=== PATIENT | male | born 2000 | race Caucasian/White ===

== ENCOUNTER 2023-08-15 21:05 | Emergency (ER) | payer MEDICARE, MEDICAID, SELFPAY ==
[2023-08-15] VITALS (10 sets, daily range): BP systolic 94–167; BP diastolic 74–111; PULSE 110; TEMP 36.6; O2SAT 95–97; BMI 39.1
--- NOTE | 2023-08-15 21:24 | ECG_ITS ---
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
--- NOTE | 2023-08-15 21:32 | ED_ITS ---
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 He states he had an ablation about 2 years ago at [facility] for WPW. He states he was told to take an aspirin for a week but was not prescribed any additional medications. He states last night he was awoken out of his sleep by feeling palpitations, tightness in his chest and feeling hot and cold. He states the episode lasted for several minutes and then resolved and today he had a similar episode this afternoon. He does have the sensation of palpitations this afternoon. He denies any recent illness, fevers, vomiting or other flulike illness. He does not smoke. Related Data Home Medications ?Medication ?Instructions ?Recorded ?Confirmed olanzapine 10 mg tablet mg 08/15/23 paliperidone palmitate 39 mg/0.25 39 mg IM Q30D 08/15/23 08/15/23 mL intramuscular syringe (Invega Sustenna) Allergies Allergy/AdvReac Type Severity Reaction Status Date / Time No Known Drug Allergies Allergy Verified 08/15/23 21:18 Review of Systems ROS Constitutional Denies: fever or chills Ears, nose, mouth, and throat Denies: throat pain or nasal congestion Cardiovascular Reports: chest pain and palpitations Respiratory Denies: shortness of breath or cough Gastrointestinal Denies: nausea or vomiting Musculoskeletal Denies: back pain or neck pain Integumentary/Breast Denies: rash Hematologic/Lymphatic Denies: easy bruising or easy bleeding [facility] Medical History (Updated 08/15/23 @ 21:36 by DARLING Springer) Depression ?F32.A - Depression, unspecified (ICD-10) Anxiety ?F41.9 - Anxiety disorder, unspecified (ICD-10) 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) Schizophrenia ?F20.9 - Schizophrenia, unspecified (ICD-10) Surgical History (Updated 08/15/23 @ 21:21 by Mynor Allen) H/O cardiac radiofrequency ablation ?Z98.890 - Other specified postprocedural states (ICD-10) Exam Narrative Exam Narrative: Gen.: Awake, alert, in no distress Head: Normocephalic, atraumatic ENT: Moist mucous membranes Respiratory: No respiratory distress, lungs clear bilaterally Cardio: Regular rate and rhythm Extremities: Moves extremities equally Psych: Normal mood and affect Neuro: No focal neuro deficit Skin: Warm, dry, intact Constitutional Vital Signs, click to edit/add: Last Vital Signs Temp 97.8 F 08/15/23 21:10 Pulse 110 H 08/15/23 21:10 Resp 18 08/15/23 21:10 BP 167/111 H 08/15/23 21:10 Pulse Ox 97 08/15/23 21:10 O2 Del Method Room Air 08/15/23 21:10 Course Vital Signs Vital signs: Vital Signs Temperature 97.8 F 08/15/23 21:10 Pulse Rate 110 H 08/15/23 21:10 Respiratory Rate 18 08/15/23 21:10 Blood Pressure 167/111 H 08/15/23 21:10 Pulse Oximetry 97 08/15/23 21:10 Oxygen Delivery Method Room Air 08/15/23 21:10 Temperature 97.8 F 08/15/23 21:10 Pulse Rate 110 H 08/15/23 21:10 Respiratory Rate 18 08/15/23 21:10 Blood Pressure 167/111 H 08/15/23 21:10 Pulse Oximetry 97 08/15/23 21:10 Oxygen Delivery Method Room Air 08/15/23 21:10 MDM - Arrhythmia/Palpitations MDM Narrative Medical decision making narrative: 2134: Patient was seen and examined by myself, no EKG changes at this time. He was ordered to have IV placement with fluids, lab studies and imaging of the chest is pending based on his D-dimer result. Case is turned over to attending physician at this time for disposition. This patient was seen and evaluated in conjunction with the physician assistant professor of english. Please refer to her H&P. He was seen and examined. He states that last night he felt like he was having some palpitations and could not get comfortable. He has a history of WPW and had an ablation 2 years ago at [facility] in [place]. His EKG was reviewed by myself as a sinus rhythm with no delta waves or sign of Idpvx-Iviyranic-Boygy. Normal axis, normal intervals and no acute changes. An IV was placed and he was medicated with IV fluids. Cardiac workup was ordered. He has a normal white count and hemoglobin. Electrolytes and TSH are normal. Troponin and D-dimer are both normal. He was seen and evaluated. He states he is feeling somewhat better but still feels a little bit lightheaded and has a mild headache. He will be medicated with Toradol and discharged home. He does not currently follow-up with cardiology and will be referred to [facility] as an outpatient Medical Records Attestation: I reviewed the patient's medical records. Lab Data Attestation: I reviewed the patient's lab results. Labs: Lab Results 08/15/23 Range/Units 21:30 WBC 8.3 (4.0-11.0) 10^3/uL RBC 5.08 (4.70-6.10) 10^6/uL Hgb 14.7 (14.0-18.0) g/dL Hct 42.3 (42.0-54.0) % MCV 83.3 (80.0-94.0) fL MCH 28.9 (25.9-34.0) pg MCHC 34.8 (29.9-35.2) g/dL RDW 12.1 (11.0-15.0) % Plt Count 294 (150-450) 10^3/uL MPV 10.7 (9.5-13.5) fL Neut % (Auto) 62.5 (43.0-75.0) % Lymph % (Auto) 26.3 (20.5-60.0) % Tyrrell % (Auto) 8.0 (1.7-12.0) % Eos % (Auto) 2.7 (0.9-7.0) % Baso % (Auto) 0.4 (0.2-2.0) % Neut # (Auto) 5.2 (1.4-6.5) 10^3/uL Lymph # (Auto) 2.2 (1.2-3.8) 10^3/uL Tyrrell # (Auto) 0.7 (0.3-0.8) 10^3/uL Eos # (Auto) 0.2 (0.0-0.7) 10^3/uL Baso # (Auto) 0.0 (0.0-0.1) 10^3/uL Abs Immat Gran (auto) 0.01 (0.00-0.03) 10^3/uL Imm/Tot Granulo (auto) 0.1 (0.0-0.5) % PT 11.4 (9.0-11.6) sec INR 1.08 D-Dimer 0.20 (<=0.59) mg/L FEU Sodium 139 (136-145) mmol/L Potassium 3.6 (3.5-5.1) mmol/L Chloride 102 (98-107) mmol/L Carbon Dioxide 26.8 (21.0-32.0) mmol/L Anion Gap 13.8 BUN 7.0 (7.0-18.0) mg/dL Creatinine 1.22 (0.70-1.30) mg/dL Est GFR ( Amer) >60 (>=60) Est GFR (Non-Af Amer) >60 (>=60) BUN/Creatinine Ratio 5.7 Glucose 142 H (74-106) mg/dL Calcium 9.1 (8.5-10.1) mg/dL Total Bilirubin 0.6 (0.2-1.0) mg/dL AST 13 L (15-37) U/L ALT 31 (16-63) U/L Alkaline Phosphatase 82 (46-116) U/L Troponin I High Sens 7.5 (4.0-76.1) pg/mL NT-Pro-B Natriuret Pep 10.0 (<=450.0) pg/mL Total Protein 7.4 (6.4-8.2) g/dL Albumin 4.0 (3.4-5.0) g/dL Globulin 3.4 g/dL Albumin/Globulin Ratio 1.2 TSH 2.564 (0.358-3.740) uIU/mL ECG Data Attestation: I personally reviewed and interpreted this ECG as follows: (Normal sinus rhythm at a rate of 98, no acute ST elevation or ectopy. EKG reviewed by attending physician) ECG interpretation date: 08/15/23 ECG interpretation time: 21:35 Discharge Plan Discharge Stand Alone Forms: Portal Instructions Chief Complaint: Arrhythmia/Palpitations Clinical Impression: Palpitations Patient Disposition: Home, Self-Care Time of Disposition Decision: 22:59 Condition: Good Prescriptions / Home Meds: No Action olanzapine 10 mg tablet Invega Sustenna 39 mg/0.25 mL syringe 39 mg IM Q30D Print Language: Syrian Instructions: Heart Palpitations (ED) [facility] [Primary Care Provider] - 1 week JAJA WANG [Physician] - 1 week
[2023-08-15 21:40] LABS: Basophils Percent Auto 0.4 % (0.2-2.0); Eosinophils Absolute Auto 0.2 10^3/uL (0.0-0.7); Eosinophils Percent Auto 2.7 % (0.9-7.0); Hematocrit 42.3 % (42.0-54.0); Hemoglobin 14.7 g/dL (14.0-18.0); Immature Granulocytes Abs Auto 0.01 10^3/uL (0.00-0.03); Immature Granulocytes Pct Auto 0.1 % (0.0-0.5); Lymphocytes Absolute Auto 2.2 10^3/uL (1.2-3.8); Lymphocytes Percent Auto 26.3 % (20.5-60.0); Mean Corpuscular HGB Conc 34.8 g/dL (29.9-35.2); Mean Corpuscular Hemoglobin 28.9 pg (25.9-34.0); Mean Corpuscular Volume 83.3 fL (80.0-94.0); Mean Platelet Volume 10.7 fL (9.5-13.5); Monocytes Absolute Auto 0.7 10^3/uL (0.3-0.8); Neutrophils Absolute Auto 5.2 10^3/uL (1.4-6.5); Neutrophils Percent Auto 62.5 % (43.0-75.0); Platelet Count 294 10^3/uL (150-450); Red Blood Count 5.08 10^6/uL (4.70-6.10); Red Cell Distribution Width 12.1 % (11.0-15.0); White Blood Count 8.3 10^3/uL (4.0-11.0)
[2023-08-15 21:53] LABS: INR 1.08; Prothrombin Time 11.4 sec (9.0-11.6)
[2023-08-15 21:54] LABS: Alanine Aminotransferase 31 U/L (16-63); Albumin Globulin Ratio 1.2; Alkaline Phosphatase 82 U/L (46-116); Anion Gap 13.8; Aspartate Amino Transferase 13 U/L (15-37); BUN Creatinine Ratio 5.7; Bilirubin Total 0.6 mg/dL (0.2-1.0); Calcium 9.1 mg/dL (8.5-10.1); Carbon Dioxide 26.8 mmol/L (21.0-32.0); Chloride 102 mmol/L (98-107); Estimated GFR (African America >60 (>=60); Estimated GFR (Non-African Ame >60 (>=60); Globulin 3.4 g/dL; Glucose 142 mg/dL (74-106); Potassium 3.6 mmol/L (3.5-5.1); Sodium 139 mmol/L (136-145); Total Protein 7.4 g/dL (6.4-8.2)
[2023-08-15] MEDS: 0.9 % SODIUM CHLORIDE 1,000 ML 1000 ML IV (21:56)
--- NOTE | 2023-08-15 21:57 | XR_ITS ---
[address] [address] Patient Name: JEAN BETHEA MRN: [id number] date: 2000 Sex: M Assigned Patient Location: ER Current Patient Location: Accession/Order Number: [id number] Exam Date: 08/15/2023 22:00 Report Date: 08/15/2023 22:42 At the request of: JAIMIE HOOKS Procedure: XR chest 1V EXAM: XR chest 1V CLINICAL INDICATION: Palpitations TECHNIQUE: Portable frontal semi-erect view of the chest. COMPARISON: None. FINDINGS: Lines and tubes: None. Lungs: No convincing focal infiltrates. No pleural effusion or pneumothorax. Heart: Cardiac and mediastinal contours are unremarkable. No overt pulmonary vascular congestion. Osseous structures: No acute abnormalities. XR/XR chest 1V IMPRESSION: No acute cardiopulmonary process. Electronically authenticated by: QIANA GALARZA Date: 08/15/2023 22:42
[2023-08-15 22:02] LABS: Thyroid Stimulating Hormone 2.564 uIU/mL (0.358-3.740); Troponin I High Sensitivity 7.5 pg/mL (4.0-76.1)
[2023-08-15] MEDS: KETOROLAC TROMETHAMINE 30 MG/ML VIAL 15 MG IVP (23:03)
== END 2023-08-15 23:17 | disposition home or self-care (01) ==
PROVIDERS: Physician Assistant; Emergency Provider Emergency Medicine
DX: R00.2 Palpitations (principal); Z79.899 Other long term (current) drug therapy; F32.A Depression, unspecified; F41.9 Anxiety disorder, unspecified; I45.6 Pre-excitation syndrome; F20.9 Schizophrenia, unspecified; Z98.890 Other specified postprocedural states
CPT/HCPCS: 36415; 71045; 80053; 83880; 84443; 84484; 85025; 85378; 85610; 93005; 96374; 99285

== ENCOUNTER 2023-11-18 07:45 | Outpatient (OUT) | payer MEDICARE, MEDICAID, SELFPAY ==
--- OUTSIDE RECORDS SUMMARY | 2023-11-18 07:48 | XMS_ITS | CCD ---
Author Organization [facility] Care Team Providers Care Processor [employer] Name Role Phone ZENIA AU Admitting Unavailable ZENIA AU Attending Unavailable EVAN CHURCH Referring Unavailable EMERSON EDDY Attending Unavailable SERVICES, [facility] Primary Care UnaMAYE Syed Attending Unavailable MAYE MENDENHALL Referring Unavailable SERVICES, [facility] Primary Care Unava ANDI Salguero Attending Unavailable Román Leiva Attending Unavailab le Román Leiva Admitting Unavailab le NO FAMILY, PHYSICIAN Primary Care Unavailable Problems Problem Classification Problem Date Documented Da te Episodic/Chronic Other lower respiratory disease (1 source) Cough Onset: 04-20-2023 Episodic Other upper respiratory infections (1 source) Acute upper respiratory infection, unspecified; Translations: [Acute upper respiratory infection, unspecified] Onset: 04-20-2023 Episodic Unclassified (1 source) Cough, Vomitting Onset: 04-20-2023 Results Test Name Value Interpretation Reference Range Facil ity Office Visiton 09-06-2023 Follow-up visit [id number] Navjot Ocampo 2000 M Date Provider Department Center 09/06/2023 3848-ANDI FOSS CARD [facility] Family History Problem Relation Age of Onset Heart attack Maternal Grandmother Family Status - Relation Status Age at Maternal Grandmother Level of Service:81304 ND OFFICE/OUTPATIENT NEW MODERATE MDM 45 MINUTES Normal [facility] CBC AND AUTO DIFFon 04-20-19 24 ABSOLUTE BASOPHIL 0.1 X10E9/L Normal 0.0-0.2 [facility] Comment on above: Performed By: #### C BCA, CMP #### [facility] ([id number]) [address] [place] [address] 84384 ABSOLUTE NEUTROPHIL 5.1 X10E9/L Normal 1.5-6.6 [facility] Comment on above: Performed By: #### C BCA, CMP #### [facility] ([id number]) [address] [place] [address] 12750 Basophils/100 WBC (Bld) 0.6 % Normal [facility] Comment on above: Performed By: #### C BCA, CMP #### [facility] ([id number]) [address] [place] [address] 41320 Eosinophils (Bld) [#/Vol] 0.3 10*3/uL Normal 0.0-0.4 [facility] Comment on above: Performed By: #### C AKOSUA, CMP #### [facility] ([id number]) [address] [place] [address] 13816 Eosinophils/100 WBC (Bld) 3.6 % Normal [facility] Comment on above: Performed By: #### C AKOSUA, CMP #### [facility] ([id number]) [address] [place] [address] 90791 Erythrocyte distribution width (RBC) [Ratio] 13.2 % Normal 11.5-15.0 [facility] Comment on above: Performed By: #### C AKOSUA, CMP #### [facility] ([id number]) [address] [place] [address] 39089 Hematocrit (Bld) [Volume fraction] 40.4 % Normal 39-49 [facility] Comment on above: Performed By: #### C BCA, CMP #### [facility] ([id number]) [address] [place] [address] 39115 Hemoglobin (Bld) [Mass/Vol] 14.0 g/dL Normal 13.0-17.0 [facility] Comment on above: Performed By: #### C BCA, CMP #### [facility] ([id number]) [address] [place] [address] 24805 Lymphocytes (Bld) [#/Vol] 2.0 10*3/uL Normal 1.0-3.5 [facility] Comment on above: Performed By: #### C BCA, CMP #### [facility] ([id number]) [address] [place] [address] 18716 Lymphocytes/100 WBC (Bld) 22.7 % Normal [facility] Comment on above: Performed By: #### C BCA, CMP #### [facility] ([id number]) [address] [place] [address] 05423 MCH (RBC) [Entitic mass] 28.8 pg Normal 27-34 [facility] Comment on above: Performed By: #### C AKOSUA, CMP #### [facility] ([id number]) [address] [place] [address] 45988 MCHC (RBC) [Mass/Vol] 34.8 g/dL Normal 32-36 [facility] Comment on above: Performed By: #### C BCA, CMP #### [facility] ([id number]) [address] [place] [address] 81357 MCV (RBC) [Entitic vol] 83 fL Normal 80-100 [facility] Comment on above: Performed By: #### C BCA, CMP #### [facility] ([id number]) [address] [place] [address] 71848 Monocytes (Bld) [#/Vol] 1.3 10*3/uL High 0-0.9 [facility] Comment on above: Performed By: #### C BCA, CMP #### [facility] ([id number]) [address] [place] [address] 12819 Monocytes/100 WBC (Bld) 14.6 % Normal [facility] Comment on above: Performed By: #### C BCA, CMP #### [facility] ([id number]) [address] [place] [address] 09486 Neutrophils/100 WBC (Bld) 58.5 % Normal [facility] Comment on above: Performed By: #### C BCA, CMP #### [facility] ([id number]) [address] [place] [address] 45080 Platelet mean volume (Bld) [Entitic vol] 9.1 fL Normal 7-12 [facility] Comment on above: Performed By: #### C BCA, CMP #### [facility] ([id number]) [address] [place] [address] 55033 Platelets (Bld) [#/Vol] 279 10*3/uL Normal 150-450 [facility] Comment on above: Performed By: #### C BCA, CMP #### [facility] ([id number]) [address] [place] [address] 38428 RBC COUNT 4.86 X10E12/L Normal 4.10-5.70 [facility] Comment on above: Performed By: #### C BCA, CMP #### [facility] ([id number]) [address] [place] [address] 30784 WBC (Bld) [#/Vol] 8.7 10*3/uL Normal 4.0-11.0 [facility] Comment on above: Performed By: #### C BCA, CMP #### [facility] ([id number]) [address] [place] [address] 31683 COMPREHENSIVE METABOLIC PANE Brigido 04-20-2023 Albumin [Mass/Vol] 4.3 g/dL Normal 3.2-5.3 [facility] Comment on above: Performed By: #### C BCA, CMP #### [facility] ([id number]) [address] [place] [address], [place] [address] ALP [Catalytic activity/Vol] 72 U/L Normal 39-130 [facility] Comment on above: Performed By: #### C BCA, CMP #### [facility] ([id number]) [address] [place] [address] 72576 ALT [Catalytic activity/Vol] 27 U/L Normal 0-40 [facility] Comment on above: Performed By: #### C BCA, CMP #### [facility] ([id number]) [address] [place] [address] 17674 Anion gap [Moles/Vol] 11 mmol/L Normal 5-15 [facility] Comment on above: Performed By: #### C BCA, CMP #### [facility] ([id number]) [address] [place] [address] 89856 AST [Catalytic activity/Vol] 18 U/L Normal 0-41 [facility] Comment on above: Performed By: #### C BCA, CMP #### [facility] ([id number]) [address] [place] [address] 24067 Bilirubin [Mass/Vol] 0.8 mg/dL Normal 0.3-1.2 [facility] Comment on above: Performed By: #### C BCA, CMP #### [facility] ([id number]) [address] [place] [address] 89454 Calcium [Mass/Vol] 8.9 mg/dL Normal 8.5-10.5 [facility] Comment on above: Performed By: #### C BCA, CMP #### [facility] ([id number]) [address] [place] [address] 31494 Chloride [Moles/Vol] 102 mmol/L Normal 98-109 [facility] Comment on above: Performed By: #### C BCA, CMP #### [facility] ([id number]) [address] [place] [address] CO2 [Moles/Vol] 25 mmol/L Normal 22-32 [facility] Comment on above: Performed By: #### C BCA, CMP #### [facility] ([id number]) [address] [place] [address] 46963 Creatinine [Mass/Vol] 1.00 mg/dL Normal 0.70-1.20 [facility] Comment on above: Result Comment: METH OD TRACEABLE TO IDMS STANDARD Performed By: #### C AKOSUA, CMP #### [facility] ([id number]) [address] [place] [address] 15307 eGFR (CKD-EPI) NON-RACE DEPENDENT >90 Normal >59 [facility] Comment on above: Result Comment: Reported eGFR is based on the CKD-EPI 2020 equation that does not use a race coefficient. Performed By: #### C BCA, CMP #### [facility] ([id number]) [address] [place] [address] 45862 Glucose [Mass/Vol] 121 mg/dL High 65-99 [facility] Comment on above: Performed By: #### C BCA, CMP #### [facility] ([id number]) [address] [place] [address] 01034 Potassium [Moles/Vol] 3.6 mmol/L Normal 3.5-5.0 [facility] Comment on above: Performed By: #### C BCA, CMP #### [facility] ([id number]) [address] [place] [address] 75900 Protein [Mass/Vol] 7.4 g/dL Normal 6.0-8.0 [facility] Comment on above: Performed By: #### C BCA, CMP #### [facility] ([id number]) [address] [place] [address] 82184 Sodium [Moles/Vol] 138 mmol/L Normal 134-146 [facility] Comment on above: Performed By: #### C BCA, CMP #### [facility] ([id number]) [address] [facility], [place] [address] Urea nitrogen [Mass/Vol] 7 mg/dL Normal 5-23 [facility] Comment on above: Performed By: #### C BCA, CMP #### [facility] ([id number]) [address] [place] [address] RESP PATHOGENS/MASK-WvU-0gr 04-20-2023 Respiratory pathogens DNA and RNA panel ZACHARY+non-probe (Nph) SPECIMEN SOURCE NASO PHARYNX ADENOVIRUS Not detected (qualifier value) CORONAVIRUS 229E Detected (qualifier value) CORONAVIRUS HKU1 Not detected (qualifier value) CORONAVIRUS NL63 Not detected (qualifier value) CORONAVIRUS OC43 Not detected (qualifier value) HUMAN METAPNEUVIRUS Not detected (qualifier value) RHINO/ENTEROVIRUS Not detected (qualifier value) INFLUENZA A Not detected (qualifier value) INFLUENZA B Not detected (qualifier value) PARAINFLUENZA 1 Not detected (qualifier value) PARAINFLUENZA 2 Not detected (qualifier value) PARAINFLUENZA 3 Not detected (qualifier value) PARAINFLUENZA 4 Not detected (qualifier value) RESP SYNCYTIAL VIRUS Not detected (qualifier value) BORD PARAPERTUSSIS Not detected (qualifier value) BORDETELLA PERTUSSIS Not detected (qualifier value) CHLAM.PNEUMONIAE Not detected (qualifier value) MYCO. PNEUMONIAE Not detected (qualifier value) SARS CoV 2 Not detected (qualifier value) NOTE The [employer] Respiratory Panel 2.1 (RP2.1) is a multiplexed nucleic acid test intended for the simultaneous qualitative detection and differentiation of nucleic acid from multiple viral and bacterial respiratory organisms, including nucleic acid from Severe Acute Respiratory Syndrome Coronavirus 2 (SARS-CoV-2), in nasopharyngeal swabs obtained from individuals suspected of COVID-19 by their healthcare provider. Testing is limited to laboratories certified under the Clinical Laboratory Improvement Amendments of 1988 (CLIA), to perform high complexity or moderate complexity tests. SARS-CoV-2 RNA and nucleic acids from the other respiratory viral and bacterial organisms identified by this test are generally detectable in nasopharyngeal swabs during the acute phase of infection. The detection and identification of specific viral and bacterial nucleic acids from individuals exhibiting signs and/or symptoms of respiratory infection is indicative of the presence of the identified microorganism and aids in the diagnosis of respiratory infection if used in conjunction with other clinical and epidemiological information. Positive results are indicative of the presence of the identified organism, but do not rule out co-infection with other pathogens. The agent(s) detected by the [employer] RP2.1 may not be the definite cause of disease and clinical correlation with patient history and other diagnostic information is necessary to determine patient infection status. Negative results in the setting of a respiratory illness may be due to infection with pathogens not detected by this test, or lower respiratory tract infection that may not be detected by a nasopharyngeal specimen. Negative results do not preclude SARS-CoV-2 infection and should not be used as the sole basis for patient management decisions. Negative DEN-CoV-2 results must be combined with clinical observations, patient history and epidemiological information. Negative results for other organisms identified by the test may require additional laboratory testing when evaluating a patient with possible respiratory tract infection. Normal [facility] Comment on above: Performed By: #### 8 [id number] #### [facility] ([id number]) [address] [facility], FIRST [address]LO[address] [place], [place] [id number] [place] [address] LAB ([id number]) [address] [place] [address] [address] [place] [address] SARS/FLU A+B/RSV by NAAT/Mol ularon 04-20-2023 SARS/FLU A+B/RSV by NAAT/Molecular FLU A PCR Negative (qualifier value) FLU B PCR Negative (qualifier value) RSV by PCR Negative (qualifier value) SARS CoV 2 Not detected (qualifier value) NOTE The Xpert Xpress SARS-CoV-2/Flu/RSV Plus test is a rapid, multiplexed real-time RT-PCR test intended for the simultaneous qualitative detection and differentiation of SARS-CoV-2, influenza A, influenza B and respiratory syncytial virus (RSV) viral RNA from individuals suspected of respiratory viral infection consistent with COVID-19 by their healthcare provider. This test has not been validated in asymptomatic patients. The Xpert Xpress SARS-CoV-2 test is intended for use by qualified and trained operators who are performing tests using either GeneXpert DX or GeneXpert Infinity systems and is limited to laboratories that meet the CLIA requirements to perform high and moderate complexity tests. The Xpert Xpress SARS-CoV-2/Flu/RSV Plus is only for use under the Food and Drug Administration's Emergency Use Authorization. Results are for the simultaneous detection and differentiation of SARS-CoV-2, influenza A, influenza B and RSV nucleic acids in clinical specimens. SARS-CoV-2, influenza A, influenza B and RSV RNA identified by this test are generally detectable in upper respiratory samples during the acute phase of infection. Positive results are indicative of the presence of the identified virus, but do not rule out bacterial infection or co-infection with other pathogens not detected by this test. Clinical correlation with patient history and other diagnostic information is necessary to determine patient infection status. The agent detected may not be the definite cause of disease. Negative results do not preclude SARS-CoV-2, influenza A, influenza B and RSV infection and should not be used as the sole basis for treatment or other patient management decisions. Negative results must be combined with clinical observations, patient history and epidemiological information. An Invalid result may occur with specimen-associated inhibition unable to be resolved with specimen repeat. Fact Sheet for Healthcare Providers: https://www.fda.gov/m edia/792669/download Fact Sheet for Patients: https://www.fda.gov/m edia/934689/download Normal [facility] Comment on above: Performed By: #### C OVFLR #### [facility] ([id number]) [address] [place] [address], [place] [address] XR CHEST 2 VWSon 04-20-2023 XR CHEST 2 VWS XR CHEST 2 VWS History: Cough. Fever history of Vfwbl-Gzlbzxiaa-Dsiwb with cardiac ablation Chest Xray Two-view study. Comparison: 12/22/2021 Findings: The lungs are stable. Cardiac silhouette and pulmonary vasculature are unchanged. No focal consolidative airspace disease, pneumothorax, or pleural effusion is appreciated. No free air beneath the diaphragm is noted. The osseous structures are stable. Impression: * No acute process. Finalized by Samina Mariano MD on 04/20/2023 9:38 PM Normal [facility] Lithiumon 03-11-2019 Wallace [Moles/Vol] 1.1 mmol/L Normal 0.6-1.2 [facility] Comment on above: Performed By: #### L IC #### [facility] [address] [place] [address] Trimming Machine Operator: Grant Lemos DO Wallace [Moles/Vol] 450 mmol/L Normal [facility] Comment on above: Performed By: #### L IC #### [facility] [address] [place] [address] Trimming Machine Operator: Grant Lemos DO Wallace [Moles/Vol] 659150 mmol/L Normal [facility] Comment on above: Performed By: #### L IC #### [facility] [address] [place] [address] Trimming Machine Operator: Grant Lemos DO Wallace [Moles/Vol] 2053 mmol/L Normal [facility] Comment on above: Performed By: #### L IC #### [facility] [address] [place] [address] Trimming Machine Operator: Grant Lemos DO Encounters Encounter Date Encounter Type Care Provider Facility Start: 11-08-2023 ambulatory Román Ha acility:[facility] Start: 09-06-2023 End: 09-06-2023 [facility] Start: 04-20-2023 End: 04-21-2023 [facility] Start: 03-07-2019 End: 03-12-2019 Evaluation and management of inpatient [facility] Procedures Date Procedure Procedure Detail Performing Clinician Start: 03-12-2019 PATIENT MONITORING C LOSE Q 15 [facility]ES [facility] Start: 03-11-2019 DISCHARGE PATIENT DEDEJEAN PAUL BUNCH [facility] Start: 03-11-2019 Drug screen quantita tive lithium [facility] Start: 03-09-2019 IP CONSULT TO HISTOR Y AND PHYSICAL ZENIA AU Start: 03-07-2019 DIET GENERAL ZENIA AU Start: 03-07-2019 FULL CODE ZENIA AU Start: 03-07-2019 PATIENT STATUS (DIRECT) ZENIA AU Start: 03-07-2019 TOBACCO CESSATION EDUCATION ZENIA AU Start: 03-07-2019 VITAL SIGNS [facility] Payers Date Payer Category Payer Self-pay 2019 Medicare [id number] 2014 Medicaid [id number] 2014 Medicare [id number] 2000 Unknown [id number] [id number] 2000 Unknown [id number] 2000 Unknown [id number] [id number] Unknown [id number] [id number] Progress note 09-06-2023 Note Date & Type Note Facility 09-06-2023 Note Cardiology Clinic No te Chief Complaint: palpitations, dizziness HPI: Navjot Ocampo is a 23 y.o. 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 Patient presents to cardiology clinic for complaints of palpitations and dizziness. Patient states that ablation was several years ago. He did well for some time, but has had palpitations and dizziness over the past few months. No syncope. No anginal chest pain. No lower extremity edema, orthopnea, or PND. Cardiology ROS: GENERAL: Denies fever, chills, night sweats, weight loss. HEENT: Denies changes in vision, photophobia, changes in hearing, epistaxis, oral bleeding. CARDIOVASCULAR: Denies chest pain, exertional dyspnea, orthopnea/PND, lower extremity edema, palpitations, lightheadedness/dizziness. RESPIRATORY: Denies SOB, coughing, wheezing GI: Denies abdominal pain, nausea/vomiting, heartburn, melena/hematochezia. RENAL: Denies dysuria, hematuria, flank pain. MSK: Denies muscle weakness/pain, arthralgias/joint pain. NEUROLOGIC: Denies LOC, weakness, numbness, headaches. SKIN: Denies abnormal rashes or bleeding. PSYCH: Denies significant anxiety, depression, sleep disturbances. Past Medical History He has a past medical history of Abnormal ECG, Anxiety, Arrhythmia, Depression, Schizophrenia (CMS/HCC), and WPW (Gpjbk-Ycoifxrkh-Hygbc syndrome). Surgical History He has a past surgical history that includes Ablation of dysrhythmic focus. Social History He reports that he has never smoked. He has never used smokeless tobacco. He reports current alcohol use. No history on file for drug use. Family History Family History Problem Relation Name Age of Onset Heart attack Maternal Grandmother Medications Current Outpatient Medications on File Prior to Visit Medication Sig Dispense Refill OLANZapine (ZyPREXA) 10 mg tablet Take 10 mg by mouth at bedtime. paliperidone palmitate ER (Invega Sustenna) 39 mg/0.25 mL syringe Inject 39 mg into the shoulder, thigh, or buttocks every 28 (twenty-eight) days. No current facility-administered medications on file prior to visit. Allergies Patient has no known allergies. Physical Exam VITAL SIGNS: BP 104/80 (BP Location: Right arm, Patient Position: Sitting) Pulse 83 Ht 1.651 m (5' 5 ) Wt 101 kg (223 lb) SpO2 97% BMI 37.11 kg/m??? Constitutional: Well developed, Well nourished, No acute distress, Non-toxic appearance. HENT: Normocephalic, Atraumatic, Bilateral external ears have normal appearance, Nose appears normal, nares are patent. Eyes: PERRLA, EOMI, Conjunctiva normal, No discharge. Neck: Normal range of motion, No tenderness, Supple, No stridor. No cervical lymphadenopathy noted. Cardiovascular: Normal heart rate, Normal rhythm, No murmurs, No rubs, No gallops. Thorax & Lungs: Normal breath sounds, No respiratory distress, No wheezing, No chest tenderness to palpation. Abdomen: Bowel sounds normal, Soft, Nontender, No masses, No pulsatile masses. Skin: Warm, Dry, No erythema, No rash. Back: No tenderness, No CVA tenderness. Extremities: Intact distal pulses, No edema, No tenderness, No cyanosis, No clubbing. Musculoskeletal: Grossly normal strength in extremities Neurologic: Alert & oriented x 3, no gross focal neurological deficits Psychiatric: Affect normal, Judgment normal, Mood normal. Impression: -WPW s/p ablation -Palpitations -Dizziness Plan: -Will obtain 30 day event monitor to assess for arrythmia -Will obtain echo to assess LVEF, regional wall motion. Valvular function, and to rule out structural abnormality -Optimize medical management -Aggressive risk factor modification -Plan of care discussed with patient. All questions were answered. Patient voices understanding and is agreeable with current plan. -Patient was educated on red flag symptoms. Strict return precautions were provided. Patient verbalizes understanding -Follow-up in cardiology clinic after testing is complete Thank you for allowing us to participate in the care of your patient. Please do not hesitate to contact cardiology with any questions or concerns. Andi Foss MD Interventional Cardiology [facility] Summary Purpose Family History No Family History Records FoundNo Family History Records FoundNo Family History Records FoundNo Family History Records Found Advance Directives No Advanced Directives Records FoundNo Advanced Directives Records FoundNo Advanced Directives Records FoundNo Advanced Directives Records Found Additional Source Comments (unrecognized sect ion and content) No Status Records FoundNo Status Records FoundNo Status Records FoundNo Status Records Found INFORMATION SOURCE (unrecogn ized section and content) DATE CREATED AUTHOR 03/12/2019 [facility] DATE CREATED AUTHOR AUTHOR'S ORGANIZ ATION 04/21/2023 [facility] DATE CREATED AUTHOR AUTHOR'S ORGANIZ ATION 09/08/2023 [facility] DATE CREATED AUTHOR AUTHOR'S ORGANIZ ATION 11/10/2023 [facility] FOR RECORDS PERTAINING TO PATIENTS WHO ARE OR HAVE BEEN ENROLLED IN A CHEMICAL DEPENDENCY/SUBSTANCEABUSE PROGRAM, SOME INFORMATION MAY BE OMITTED. This clinical summary was aggregated from multiple sources. Caution should be exercised in using it in the provision of clinical care. This summary normalizes information from multiple sources, and as a consequence, information in this document may materially change the coding, format and clinical context of patient data. In addition, data may be omitted in some cases. CLINICAL DECISIONS SHOULD BE BASED ON THE PRIMARY CLINICAL RECORDS. [facility] [facility] provides no warranty or guarantee of the accuracy or completeness of information in this document.
--- NOTE | 2023-11-18 08:00 | CA_ITS ---
Patient Name: JEAN BETHEA MR#: [id number] : 2000 Exam Date: 11/18/2023 Ordering Doctor: DORIAN FOSS M.D. ECHOCARDIOGRAM REPORT PROCEDURE: CA ECHO DOPPLER COMPLETE INDICATIONS: Avry-[id number]- ablation COMPARISON: None. DESCRIPTION: COMPLETE ECHOCARDIOGRAM Real-time transthoracic echocardiography with 2D, M-mode, spectral and color flow Doppler performed. QUALITY: Technical quality was good. LEFT VENTRICLE: Normal chamber size. Mild concentric left ventricular hypertrophy. Normal systolic function. LV EF: Normal left ventricular ejection fraction, (>55%). DIASTOLIC: Normal diastolic function. ATRIAL SEPTUM: Visually appears intact. LEFT ATRIUM: Normal chamber size. RIGHT ATRIUM: Normal chamber size. RIGHT VENTRICLE: Normal chamber size. Normal right ventricular systolic function. TRICUSPID VALVE: Normal mobility and thickness. No stenosis with trivial regurgitation. RVSP 20 mmHg MITRAL VALVE: Normal mobility and thickness. No evidence of mitral valve stenosis. There is no mitral annular calcification. Trivial mitral regurgitation. AORTIC VALVE: Normal trileaflet appearance. No visible sclerosis. Normal leaflet mobility. No evidence of aortic valve stenosis. No aortic regurgitation. AORTIC ROOT: Normal diameter and appearance. PULMONIC VALVE: Normal thickness and mobility. No stenosis. Trivial regurgitation. PERICARDIUM: No evidence of pericardial effusion. IVC: Collapses with inspirations. PLEURA: CONCLUSION: 1. Mild concentric left ventricular hypertrophy with normal systolic function. LVEF is estimated at 55 to 60%. 2. Normal diastolic function. 3. Normal right ventricular size and systolic function. 4. No significant valvular dysfunction. 5. Normal right-sided pressures. 6. No pericardial effusion. Adult Echocardiography Procedure Report Left Ventricle LVEDD (3.7 - 5.6 cm): 4.73 cm LVESD (2.2 - 4.0 cm): 3.45 cm LVIVS thickness (0.6 - 1.2 cm): 1.24 cm LVPW thickness (0.5 - 1.0 cm): 1.07 cm e': 0.16 m/s E - e': 4.08 LVOT Max Gradient: 2.83 mm[Hg] LVOT Area (cm2): 0.84 m/s Peak Velocity (LVOT): 0.84 m/s Mean Velocity (LVOT): 0.57 m/s LVOT Diameter 2.14 cm Left Atrium LA Volume Index (2D A2C): 17.65 ml/m2 Left Atrium Systolic Dimension: 3.06 cm Mitral Valve MV E to A Ratio: 2.13 Mitral Valve A-Wave Peak Velocity: 0.31 m/s Mitral Valve E-Wave Peak Velocity: 0.67 m/s Right Ventricle Aorta AO Root Diam: 3.30 cm Aortic Valve AoV Area (Peak Antolin): 3.49 cm2, 3.49 cm2 AoV Area (VTI): 3.19 cm2, 3.19 cm2 Peak Velocity(Antegrade Flow): 0.87 m/s Peak Gradient(Antegrade Flow): 3.04 mm[Hg] Mean Velocity(Antegrade Flow): 0.57 m/s Mean Gradient(Antegrade Flow): 1.51 mm[Hg] Velocity Time Integral: 19.47 cm Tricuspid Valve Peak Velocity (Regurgitant Flow): 2.07 m/s Pulmonic Valve Mean Gradient: 1.62 mm[Hg] Mean Velocity: 0.60 m/s Peak Velocity: 0.88 m/s, 0.86 m/s Peak Gradient: 2.96 mm[Hg], 3.07 mm[Hg] Right Atrium Right Atrium Systolic Pressure: 46.60 ml, 46.60 ml Dictated by: Elkin Abdi M.D. on 11/18/2023 at 12:49 Approved by: Elkin Abdi M.D. on 11/18/2023 at 12:51
== END 2023-11-18 07:46 | disposition home or self-care (01) ==
LOC: CARD 07:46
PROVIDERS: Visit Provider Internal Medicine Cardiovascular Disease
DX: I50.33 Acute on chronic diastolic (congestive) heart failure (principal); I11.0 Hypertensive heart disease with heart failure; I45.6 Pre-excitation syndrome
CPT/HCPCS: 93306